=== PATIENT | male | born 1990 | race American Indian/Alaskan Native ===

== ENCOUNTER 2018-04-12 19:21 | Emergency (ER) | payer OTHER ==
[2018-04-12] MEDS ORDERED: ZOFRAN ODT PO ONE (21:41)
[2018-04-12] MEDS ORDERED: TORADOL IM ONE (21:41)
--- NOTE | 2018-04-12 21:46 | Emergency Department Report ---
ED Headache HPI - General Chief Complaint: Headache Stated Complaint: HEADACHE HBP Source: patient Exam Limitations: no limitations - History of Present Illness Initial Comments: This is a 28-year-old [place] male Presents with a headache for 2 days. She reports pressure on left side. It is worst around maxillary area. No past medical history. Past surgical history of deviated septum and adenoid removal. Patient reports sensation of congestion but nothing is coming out. He has taken [id number] cold and flu medication with no improvement of symptoms. States he currently does not check blood pressure daily. He denies visual changes, chest pain, shortness of breath, fever, cough, or myalgia. Timing/Duration: 24 hours Quality: pressure, throbbing Head Injury Location: temporal, parietal Recent Head Trauma: occasional headaches Modifying Factors: improves with: exposure to light Associated Symptoms: denies symptoms Allergies/Adverse Reactions: Allergies No Known Allergies Allergy (Verified 04/12/18 19:51) Home Medications: Ambulatory Orders Amoxicillin/Potassium Clav [Augmentin XR 1000MG 12HR] 1 tab PO BID #14 tab.er.12h 04/12/18 Butalb/Acetamin/Caff 50-325-40 [Fioricet] 1 tab PO Q8HR PRN #12 tablet 04/12/18 ED Review of Systems ROS: Stated complaint: HEADACHE HBP Other details as noted in HPI Constitutional: denies: chills, fever ENT: congestion. denies: ear pain, throat pain, dental pain, hearing loss, epistaxis Respiratory: denies: cough, shortness of breath, wheezing Cardiovascular: denies: chest pain, palpitations Gastrointestinal: denies: abdominal pain, nausea, diarrhea Skin: denies: rash, lesions Neurological: headache. denies: weakness, paresthesias Psychiatric: denies: anxiety, depression ED Past Medical Hx - Past Medical History Previous Medical History?: No - Surgical History Past Surgical History?: Yes Additional Surgical History: adnoids. devated septum - Social History Smoking Status: Never Smoker Substance Use Type: Alcohol - Medications Home Medications: Home Medications Medication Instructions Recorded Confirmed Last Taken Type Amoxicillin/Potassium Clav 1 tab PO BID #14 tab.er.12h 04/12/18 Unknown Rx [Augmentin XR 1000MG 12HR] Butalb/Acetamin/Caff 50-325-40 1 tab PO Q8HR PRN #12 tablet 04/12/18 Unknown Rx [Fioricet] ED Physical Exam - General Limitations: No Limitations General appearance: alert, in no apparent distress, obese - ENT ENT exam: Present: normal orophraynx, mucous membranes moist, other (turbinates are congested with purulent discharge, maxillary tenderness on percussion) - Neck Neck exam: Present: normal inspection - Respiratory Respiratory exam: Present: normal lung sounds bilaterally. Absent: respiratory distress - Cardiovascular Cardiovascular Exam: Present: regular rate, normal rhythm. Absent: systolic murmur, diastolic murmur, rubs, gallop - Neurological Exam Neurological exam: Present: alert, oriented X3 - Psychiatric Psychiatric exam: Present: normal affect, normal mood - Skin Skin exam: Present: warm, dry, intact, normal color. Absent: rash ED Course Vital Signs 04/12/18 04/12/18 04/12/18 19:45 21:50 22:20 Temperature 97.8 F Pulse Rate 61 Respiratory 16 18 18 Rate Blood Pressure 180/108 Blood Pressure [Right] O2 Sat by Pulse 100 Oximetry 04/12/18 23:01 Temperature 98.7 F Pulse Rate 70 Respiratory 18 Rate Blood Pressure Blood Pressure 150/99 [Right] O2 Sat by Pulse 99 Oximetry ED Medical Decision Making - Medical Decision Making This is a 26 y.o. male that presents with headache for 2 days. No past medical history. Patient is stable and was examined by me. The patient is well known by the provider's seen several times in another facility. Past medical history deviated septum repair and adenoids removed. Patient had surgery on deviated septum September 2016. He is followed by ear nose [facility] throat for headache and hypertension. Patient states he stopped taken hydrochlorothiazide after surgery and haven't had issues with blood pressure. Given toradol and Zofran once in ER. On reevaluation blood pressure trended down and patient reports feeling better. Patient will be treated for headaches and acute maxillary sinusitis. Start Augmentin and Fioricet. No further questions noted by the patient. Discharged home in stable condition. Follow up with PCP in 24-72 hours. Critical care attestation.: If time is entered above; I have spent that time in minutes in the direct care of this critically ill patient, excluding procedure time. ED Disposition Clinical Impression: Asymptomatic hypertension Headache Qualifiers: Headache type: tension-type Headache chronicity pattern: acute headache Intractability: not intractable Qualified Code(s): G44.209 - Tension-type headache, unspecified, not intractable Acute maxillary sinusitis Qualifiers: Recurrence: non-recurrent Qualified Code(s): J01.00 - Acute maxillary sinusitis, unspecified Disposition: DC- TO HOME OR SELFCARE Is pt being admited?: No Does the pt Need Aspirin: No Condition: Stable Instructions: Sinusitis (ED), Acute Headache (ED), Hypertension (ED) Additional Instructions: Use warm moist compresses over sinuses. Use ibuprofen or Tylenol for pain. Use nasal saline spray. Avoid taking antihistamines. Follow up with Primary Care Provider if fever, short of breath, chest pain, or symptoms do not improve as discussed. Prescriptions: Amoxicillin/Potassium Clav [Augmentin XR 1000MG 12HR] 1 tab PO BID #14 tab.er.12h Butalb/Acetamin/Caff 50-325-40 [Fioricet] 1 tab PO Q8HR PRN #12 tablet PRN Reason: Headache Referrals: NORI CORDOVA MD [Referring] - 3-5 Days [facility] [Provider Group] - 3-5 Days DELFINA CAMP MD [Primary Care Provider] - 3-5 Days Forms: Work/School Release Form(ED) Time of Disposition: 22:52
[2018-04-12 23:02] VITALS: BP 150/99
== END 2018-04-12 23:01 | disposition home or self-care (01) ==
LOC: ED 19:21
DX: G44.209 Tension-type headache, unspecified, not intractable (principal); I10 Essential (primary) hypertension
CPT/HCPCS: 96372; 99282; J1885; Q0162